=== PATIENT | male | born 1965 | race Caucasian/White ===

== ENCOUNTER → 2019-04-21 08:41 | Outpatient (BNVA) | payer SELFPAY | PROVIDERS: Family Provider Nurse Practitioner Family; PCP Nurse Practitioner Family | DX: E11.9 Type 2 diabetes mellitus without complications (principal) | CPT/HCPCS: 83036 ==

== ENCOUNTER → 2019-11-24 16:10 | Outpatient (BNVA) | payer SELFPAY | PROVIDERS: Family Provider Nurse Practitioner Family; PCP Nurse Practitioner Family; Visit Provider Nurse Practitioner Family | DX: E11.9 Type 2 diabetes mellitus without complications (principal); I10 Essential (primary) hypertension | CPT/HCPCS: 83036 ==

== ENCOUNTER → 2020-03-28 10:13 | Outpatient (BNVA) | payer SELFPAY | PROVIDERS: Family Provider Nurse Practitioner Family; PCP Nurse Practitioner Family; Visit Provider Nurse Practitioner Family | DX: E11.9 Type 2 diabetes mellitus without complications (principal); Z02.4 Encounter for examination for driving license | CPT/HCPCS: 83036 ==

== ENCOUNTER → 2020-05-11 09:14 | Outpatient (BNVA) | payer SELFPAY | PROVIDERS: Family Provider Nurse Practitioner Family; PCP Nurse Practitioner Family; Visit Provider Nurse Practitioner Family | DX: M62.838 Other muscle spasm (principal); M54.9 Dorsalgia, unspecified; S39.012A Strain of muscle, fascia and tendon of lower back, initial encounter; E11.9 Type 2 diabetes mellitus without complications; X58.XXXA Exposure to other specified factors, initial encounter | CPT/HCPCS: 81000 ==

== ENCOUNTER → 2020-11-21 09:31 | Outpatient (BNVA) | payer SELFPAY | PROVIDERS: Family Provider Nurse Practitioner Family; PCP Nurse Practitioner Family; Visit Provider Nurse Practitioner Family | DX: E78.5 Hyperlipidemia, unspecified (principal); I10 Essential (primary) hypertension; E11.9 Type 2 diabetes mellitus without complications | CPT/HCPCS: 80053; 80061; 82043; 83036 ==

== ENCOUNTER 2021-04-23 12:55 | Emergency (ER) | payer SELFPAY ==
[2021-04-23 13:25] VITALS: BP 130/86; PULSE 96; RESP 24; TEMP 36.8; O2SAT 97; BMI 34.0
--- NOTE | 2021-04-23 13:32 | XRR_ITS ---
PROCEDURE INFORMATION: Exam: XR Chest Exam date and time: 04/23/2021 1:32 PM Age: 55 years old Clinical indication: Shortness of breath; Additional info: SOB TECHNIQUE: Imaging protocol: XR of the chest. Views: 1 view. COMPARISON: No relevant prior studies available. FINDINGS: Limitations: The study is made with less than full inspiration. Lungs: No focal consolidation is identified. Pleural spaces: There are small bilateral pleural effusions. Heart/Mediastinum: Heart is within normal limits of size. Bones/joints: Unremarkable. XR/XR chest 1V portable [id number] IMPRESSION: Small bilateral pleural effusions.
[2021-04-23 15:04] LABS: Basophils # 0.1 10^3/uL (0.0-0.1); Basophils % 0.6 %; Eosinophils # 0.1 10^3/uL (0.0-0.8); Eosinophils % 0.9 %; Hematocrit 42.5 % (42.0-52.0); Hemoglobin 14.5 g/dL (11.7-16.6); Lymphocytes % 26.6 %; Mean Corpuscular HGB Conc 34.1 g/dL (30.0-36.0); Mean Corpuscular Hemoglobin 32.5 pg (28.0-34.0); Mean Corpuscular Volume 95.3 fl (80-94); Mean Platelet Volume 10.9 fL (7.4-10.4); Monocytes # 0.7 10^3/uL (0.2-0.9); Monocytes % 6.2 %; Neutrophils # 7.34 10^3/uL (1.8-7.7); Neutrophils % 65.4 %; Nucleated Red Blood Cells % 0 %; Platelet Count 227 10^3/cmm (130-400); Red Blood Count 4.46 10^6/uL (4.1-5.3); Red Cell Distribution Width 13.2 % (12.1-15.1); White Blood Count 11.2 10^3/uL (4.0-10.0)
[2021-04-23 15:40] LABS: Alanine Aminotransferase 70 U/L (0-41); Albumin Level 4.2 g/dL (3.5-5.2); Alkaline Phosphatase 85 IU/L (40-130); Anion Gap 16.6 (5-19); Aspartate Amino Transferase 34 U/L (0-40); Blood Urea Nitrogen 15 mg/dL (6-20); Calcium 8.8 mg/dL (8.5-10.5); Carbon Dioxide 24 mmol/L (22-29); Chloride 102 mmol/L (98-107); Globulin 2.4 g/dL (1.3-4.6); Glomerular Filtration Rate 88.3 mL/min (90-130); Glucose 176 mg/dL (65-115); NT Pro B Type Natriuretic Pept 3152 pg/mL (0-125); Osmolality Calculated 291 mOsm/kg (285-295); Potassium 4.6 mmol/L (3.5-5.1); Sodium 138 mmol/L (136-145); Total Bilirubin 0.9 mg/dL (0.15-1.2); Total Protein 6.6 g/dL (6.6-8.7)
--- NOTE | 2021-04-23 17:11 | ED_ITS ---
HPI - SOB/Dyspnea General: Chief Complaint: Shortness of Breath/Dyspnea Stated Complaint: SOB Time Seen by Provider: 04/23/21 17:10 History of Present Illness: HPI Narrative: Mr Dupree is a 55-year-old gentleman with history of hypertension, diabetes, history of tobaccoism though trying to quit who presents to the emergency department due to shortness of breath. He reports longstanding history of being well compensated and being out of work his normal job. Approximately 3 weeks ago he had a few day history of increasing shortness of breath. He presented to outside hospital and at that time was found to have pulmonary edema. He was reported started on Lasix and had been doing well again for 3 weeks however last night noticed more shortness of breath. Symptoms are mild in intensity however become moderate with exertion and severe with laying down. He does have mild cough however this is not productive. Denies other infectious symptoms. No chest pain. He has been compliant with his medication regimen. Overall the course of symptoms has persisted. No other known specific changes to health, exacerbating, relieving factors. Patient denies history of known heart failure. Pertinent past history: other Onset (ago): week(s) Context: other Severity: moderate Exacerbating factors: lying flat and movement Associated symptoms: Reports cough Review of Systems General: Reports: 10 or more systems reviewed and unremarkable except in HPI and below PFSH ED PFSH: Medical History Type 2 diabetes mellitus without complication Surgical History No significant past surgical history Social History Smoking and tobacco status: current some day smoker Physical Exam Const: COMMON NORMALS: alert GENERAL APPEARANCE: cooperative and well developed HENMT: COMMON NORMALS: normocephalic and atraumatic HEAD & SCALP: n ormocephalic and atraumatic Eye: COMMON NORMALS: conjunctivae normal CONJUNCTIVA: Yes conjunctivae normal SCLERA: sclerae normal Neck/C-Spine: COMMON NORMALS: supple GENERAL: Yes trachea midline Resp: COMMON NORMALS: normal respiratory effort EFFORT & INSPECTION: Yes able to speak in complete sentences and Yes tachypneic AUSCULTATION: crackles Laterality: bilateral (trace, bases) Cardio: COMMON NORMALS: regular rate and regular rhythm RATE: regular rate RHYTHM: regular rhythm OTHER: Bilateral 1+ edema to mid calfs GI: COMMON NORMALS: Soft to palpation PALPATION: Yes Soft to palpation and No Tenderness to palpation present (GI) PERCUSSION: normal to percussion Extremity: GENERAL: Yes normal exam except as noted and No edema Neuro: COMMON NORMALS: moves all extremities SENSORIUM/ORIENTATION: Yes alert and No Orientation impaired Psych: COMMON NORMALS: mental status grossly normal and Normal thought process present THOUGHT PROCESS: Normal thought process present Course ED course: - Patient was seen and evaluated by me at bedside - Patient placed on cardiac monitors, IV access obtained - Initial evaluation notable for exam as above - Labs notable for minimal leukocytosis. Preserved renal function on metabolic panel. Delta troponin is negative. - Imaging notable for small bilateral pleural effusion - Upon serial reexamination after treatment the patient was improved - Based on patient history, evaluation, labs, and imaging as interpreted the most likely cause of the patient's condition is heart failure exacerbation which is mild. Patient is not requiring supplemental oxygen. - The results of ED evaluation were discussed with the patient including prescriptions and/or symptomatic cares (if applicable) including appropriate and responsible use, followup plan, and return precautions. The patient verbalized understanding and felt safe for discharge. - Patient discharged in satisfactory condition. Note: Click bubbles or prepopulated parrish in note writing are used for assistance with data collection and billing and are inherently more limited than narrative and other text portions of this note. Please use narrative for additional clinical history and defer to narrative/free test for any case of contradictory information. If information appears in only free text or click bubble it should be considered present or absent as reported. Please contact note administrative underwriter for clarifications of clinical information or contradictory information. MDM is a brief summary, contradictory or erroneous seeming information should be clarified and full note should be reviewed. Vital Signs: Vital signs: Vital Signs Temperature 98.3 F 04/23/21 13:25 Pulse Rate 80 04/23/21 19:09 Respiratory Rate 20 H 04/23/21 19:09 Blood Pressure 119/95 04/23/21 19:09 Pulse Oximetry 96 04/23/21 19:09 MDM - SOB/Dyspnea MDM Narrative Medical decision making narrative: 55-year-old gentleman without significant past medical history presenting due to increased shortness of breath and orthopnea. Seen at outside hospital 3 weeks ago for similar and started on Lasix for pulmonary edema. Has been compliant with medications however he did not receive phone call for follow-up. Patient is not requiring oxygen only has mild peripheral edema. Plan to increase his Lasix and have further outpatient testing as well as cardiology follow-up. Satisfactory for discharge. Medical Records Attestation: I reviewed the patient's medical records. Lab Data Attestation: I reviewed the patient's lab results. Result diagrams: 04/23/21 15:00 04/23/21 15:00 Labs: Lab Results 04/23/21 04/23/21 04/23/21 15:00 15:00 15:00 WBC 11.2 10^3/uL H 10^3/uL (4.0-10.0) RBC 4.46 10^6/uL 10^6/uL (4.1-5.3) Hgb 14.5 g/dL g/dL (11.7-16.6) Hct 42.5 % % (42.0-52.0) MCV 95.3 fl H fl (80-94) MCH 32.5 pg pg (28.0-34.0) MCHC 34.1 g/dL g/dL (30.0-36.0) RDW 13.2 % % (12.1-15.1) Plt Count 227 10^3/cmm 10^3/cmm (130-400) MPV 10.9 fL H fL (7.4-10.4) Neut % (Auto) 65.4 % % Lymph % (Auto) 26.6 % % [place] % (Auto) 6.2 % % Eos % (Auto) 0.9 % % Baso % (Auto) 0.6 % % Neut # (Auto) 7.34 10^3/uL 10^3/uL (1.8-7.7) Lymph # (Auto) 3.0 10^3/uL 10^3/uL (0.8-4.8) [place] # (Auto) 0.7 10^3/uL 10^3/uL (0.2-0.9) Eos # (Auto) 0.1 10^3/uL 10^3/uL (0.0-0.8) Baso # (Auto) 0.1 10^3/uL 10^3/uL (0.0-0.1) Nucleated RBC % (auto) 0 % % Nucleated RBCs # 0.0 /100WBC /100WBC Sodium 138 mmol/L mmol/L (136-145) Potassium 4.6 mmol/L mmol/L (3.5-5.1) Chloride 102 mmol/L mmol/L (98-107) Carbon Dioxide 24 mmol/L mmol/L (22-29) Anion Gap 16.6 (5-19) BUN 15 mg/dL mg/dL (6-20) Creatinine 0.9 mg/dL mg/dL (0.7-1.2) GFR Calculation 88.3 mL/min L mL/min (90-130) Glucose 176 mg/dL H mg/dL (65-115) Calculated Osmolality 291 mOsm/kg mOsm/kg (285-295) Calcium 8.8 mg/dL mg/dL (8.5-10.5) Total Bilirubin 0.9 mg/dL mg/dL (0.15-1.2) AST 34 U/L U/L (0-40) ALT 70 U/L H U/L (0-41) Alkaline Phosphatase 85 IU/L IU/L (40-130) Troponin T Baseline Troponin T 120 Minute Delta Troponin T NT-Pro-B Natriuret Pep 3152 pg/mL H pg/mL (0-125) Total Protein 6.6 g/dL g/dL (6.6-8.7) Albumin 4.2 g/dL g/dL (3.5-5.2) Globulin 2.4 g/dL g/dL (1.3-4.6) Procalcitonin 0.04 ng/mL ng/mL (0-0.5) 04/23/21 04/23/21 15:00 17:55 WBC RBC Hgb Hct MCV MCH MCHC RDW Plt Count MPV Neut % (Auto) Lymph % (Auto) [place] % (Auto) Eos % (Auto) Baso % (Auto) Neut # (Auto) Lymph # (Auto) [place] # (Auto) Eos # (Auto) Baso # (Auto) Nucleated RBC % (auto) Nucleated RBCs # Sodium Potassium Chloride Carbon Dioxide Anion Gap BUN Creatinine GFR Calculation Glucose Calculated Osmolality Calcium Total Bilirubin AST ALT Alkaline Phosphatase Troponin T Baseline 26 ng/L H ng/L (0-15) Troponin T 120 Minute 25.79 ng/L H ng/L (0-15) Delta Troponin T -0.21 ABS# L ABS# (0-10) NT-Pro-B Natriuret Pep Total Protein Albumin Globulin Procalcitonin EKG Data^ EKG 1: Interpretation: Twelve-lead EKG shows a regular rhythm at a rate of 95. SD interval 144, QRS duration 169, QTc 474. Left axis deviation. Interpretation: Sinus rhythm. Left bundle branch block. Discharge Plan Discharge Patient Disposition: Home Clinical Impression: Shortness of breath, Pleural effusion, Peripheral edema Condition: Stable Prescriptions: New Lasix 20 mg tablet 40 mg PO DAILY Qty: 60 0RF No Action glipizide 5 mg tablet 5 mg PO BID Qty: 180 1RF Rx Instructions: pLEASE FILL ON 340b (DME) Blood Glucose Test Strip See Rx Instructions .Route Qty: 50 2RF Rx Instructions: As directed (DME) lancets Misc See Rx Instructions .Route Qty: 100 1RF Rx Instructions: As directed (DME) blood-glucose meter [Blood Glucose Monitoring] Kit See Rx Instructions .ROUTE .MEDSUPPLY Qty: 1 0RF Rx Instructions: As directed losartan 100 mg tablet See Rx Instructions .ROUTE .COMPLEX Qty: 90 0RF Dose Instruction: TAKE 1 TABLET BY MOUTH EVERY DAY Rx Instructions: TAKE 1 TABLET BY MOUTH EVERY DAY metformin 500 mg tablet See Rx Instructions .ROUTE .COMPLEX Qty: 90 0RF Dose Instruction: TAKE 1 TABLET BY MOUTH DAILY Rx Instructions: TAKE 1 TABLET BY MOUTH DAILY metformin 1,000 mg tablet See Rx Instructions .ROUTE .COMPLEX Qty: 180 0RF Dose Instruction: TAKE 1 TABLET BY MOUTH TWICE DAILY Rx Instructions: TAKE 1 TABLET BY MOUTH TWICE DAILY Discharge Orders: Discharge ED (Routine); Ordered 04/23/21 Ordered By: Manoj Francois Referrals: Leti Duong FNP [Primary Care Provider] - Discharge Diet: Usual diet Discharge Activity: Resume usual activity Patient Instructions: Furosemide (By mouth), Congestive Heart Failure, Pleural Effusion Activity Restrictions/Additional Instructions: Thank you for visiting the emergency department. You were seen and evaluated for shortness of breath. You are found to have recurrence of pleural effusions which likely explain your symptoms. These are typically caused by decreased function of your heart. I recommend increasing your Lasix back to 40 mg daily, assess how this works over the next 3 days and increase to 40 mg twice daily if you are still having severe symptoms. Please follow-up with your primary care provider within 1 week for repeat labs. I will message our welfare case worker for assistance in scheduling a outpatient echo cardiogram and stress test. Return to the emergency department for worsening symptoms, chest pain, failure to improve, or anything else that you are concerned about and feel needs emergency department evaluation. Coding Level of Care Code ED Curing Pickling Packer for Tara Villarreal
[2021-04-23 18:01] LABS: Procalcitonin 0.04 ng/mL (0-0.5)
[2021-04-23 18:09] LABS: Troponin(5th) Baseline 26 ng/L (0-15)
[2021-04-23] MEDS: FUROsemide 10 mg/mL SDV 4mL 40 MG IVP (18:12)
[2021-04-23 18:21] LABS: Troponin 5 2HR 25.79 ng/L (0-15); Troponin 5 2HR Delta -0.21 ABS# (0-10)
[2021-04-23 19:09] VITALS: BP 119/95; PULSE 80; RESP 20; O2SAT 96
--- NOTE | 2021-04-25 15:09 | DCPLANNER ---
assistant manager had message to schedule an outpatient stress test and echo cardiogram for patient. assistant manager faxed signed order to centralized scheduling, who will call patient with appointment information.
== END 2021-04-23 19:10 | disposition home or self-care (01) ==
PROVIDERS: Nurse Practitioner Family; Emergency Provider Emergency Medicine; PCP Nurse Practitioner Family
DX: R06.02 Shortness of breath (principal); J90 Pleural effusion, not elsewhere classified; R60.9 Edema, unspecified; E11.9 Type 2 diabetes mellitus without complications; F17.210 Nicotine dependence, cigarettes, uncomplicated; Z79.84 Long term (current) use of oral hypoglycemic drugs
CPT/HCPCS: 71045; 80053; 83880; 84145; 84484; 85025; 96374; 99284; J1940

== ENCOUNTER → 2021-04-27 10:34 | Outpatient (BNVA) | payer SELFPAY | PROVIDERS: PCP Nurse Practitioner Family; Visit Provider Nurse Practitioner Family | DX: R60.9 Edema, unspecified (principal) | CPT/HCPCS: 80053 ==

== ENCOUNTER 2021-05-08 21:19 | Emergency (ER) | payer SELFPAY ==
--- NOTE | 2021-05-08 21:24 | XRR_ITS ---
PROCEDURE INFORMATION: Exam: XR Chest Exam date and time: 05/08/2021 9:24 PM Age: 55 years old Clinical indication: Dyspnea; Additional info: SOB TECHNIQUE: Imaging protocol: XR of the chest. Views: 1 view. COMPARISON: CR (CHEST, ) 04/23/2021 4:43 PM FINDINGS: Lungs: No consolidation. Pleural spaces: No pleural effusion. No pneumothorax. Heart/Mediastinum: No cardiomegaly. Bones/joints: Unremarkable. XR/XR chest 1V portable [id number] IMPRESSION: 1. No acute abnormality demonstrated. 2. There is no interval change from the prior examination.
--- NOTE | 2021-05-08 21:24 | ECG_ITS ---
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 Measurements Intervals [place] Rate: 98 P: 77 OK: 160 QRS: -63 QRSD: 180 T: 97 QT: 440 QTc: 562 Interpretive Statements SINUS RHYTHM LEFT AXIS DEVIATION [QRS AXIS < -30] LEFT BUNDLE BRANCH BLOCK [120+ ms QRS DURATION, 80+ ms Q/S IN V1/V2, 85+ ms R IN I/aVL/V5/V6] No previous ECG available for comparison Electronically Signed On 05-09-2021 17:12:51 COVER CUTTER MACHINE by Geovany Booker M.D. [email or web address] [email or web address] system [id number]
[2021-05-08 21:40] VITALS: BP 124/91; PULSE 100; RESP 26; TEMP 36.7; O2SAT 97; BMI 34.0
[2021-05-08 23:44] LABS: Basophils % 0.3 %; Eosinophils % 0.1 %; Hematocrit 45.3 % (42.0-52.0); Lymphocytes # 2.1 10^3/uL (0.8-4.8); Lymphocytes % 18.4 %; Mean Corpuscular HGB Conc 33.1 g/dL (30.0-36.0); Mean Corpuscular Hemoglobin 32.5 pg (28.0-34.0); Mean Corpuscular Volume 98.1 fl (80-94); Mean Platelet Volume 11.2 fL (7.4-10.4); Monocytes # 0.8 10^3/uL (0.2-0.9); Monocytes % 6.7 %; Neutrophils # 8.44 10^3/uL (1.8-7.7); Neutrophils % 74.1 %; Nucleated Red Blood Cells % 0 %; Platelet Count 217 10^3/cmm (130-400); Red Blood Count 4.62 10^6/uL (4.1-5.3); Red Cell Distribution Width 13.7 % (12.1-15.1); White Blood Count 11.4 10^3/uL (4.0-10.0)
[2021-05-09 00:09] LABS: Alanine Aminotransferase 61 U/L (0-41); Albumin Level 4.7 g/dL (3.5-5.2); Alkaline Phosphatase 88 IU/L (40-130); Anion Gap 18.3 (5-19); Aspartate Amino Transferase 39 U/L (0-40); Blood Urea Nitrogen 19 mg/dL (6-20); Calcium 9.3 mg/dL (8.5-10.5); Carbon Dioxide 28 mmol/L (22-29); Chloride 96 mmol/L (98-107); Globulin 2.1 g/dL (1.3-4.6); Glomerular Filtration Rate 78.2 mL/min (90-130); Glucose 232 mg/dL (65-115); Osmolality Calculated 296 mOsm/kg (285-295); Potassium 4.3 mmol/L (3.5-5.1); Sodium 138 mmol/L (136-145); Total Bilirubin 1.6 mg/dL (0.15-1.2); Total Protein 6.8 g/dL (6.6-8.7)
--- NOTE | 2021-05-09 01:00 | ED_ITS ---
HPI - Chest Pain General: Chief Complaint: Chest Pain Stated Complaint: SOB Fluid on Lungs Time Seen by Provider: 05/08/21 23:19 Source: patient Mode of arrival: ambulatory Limitations: no limitations History of Present Illness: 55-year-old male has a history congestive heart failure states he has been having shortness of breath for the last 4 to 6 weeks has been seen here couple times for this. He was seen here last week as well. States he is improved last time after he had his increasing Lasix was states he had increasing chest pain and shortness of breath of last 3 days again. He states that is much worse with laying flat or exertion he feels okay when he is resting. Patient is in no distress here he is got oxygen saturation of 98% on room air. Denies any vomiting or diarrhea. Associated symptoms: Reports dyspnea; Deny abdominal pain, fever(s), nausea or vomiting Review of Systems Const: Denies: fever(s), chills, body aches or change in appetite Eyes: Denies: blurry vision or eye discomfort ENMT: Denies: throat pain or dental pain Card: Reports: chest pain Resp: Reports: dyspnea GI: Denies: abdominal pain, nausea, vomiting or diarrhea : Denies: dysuria Musc: Denies: neck pain or back pain Skin/Breast: Denies: rash Neuro: Denies: headache(s) Psych: Denies: depression Campos/Lymph: Denies: easy bruising All/Imm: Denies: urticaria PFSH ED PFSH: Medical History Type 2 diabetes mellitus without complication Surgical History No significant past surgical history Social History Smoking and tobacco status: current some day smoker Physical Exam Const: COMMON NORMALS: no acute distress, patient oriented x3 and healthy appearing HENMT: COMMON NORMALS: normocephalic and atraumatic HEAD & SCALP: normocephalic and atraumatic Eye: COMMON NORMALS: Equal, round and reactive pupils present and EOMs intact bilaterally PUPIL: Yes Equal, round and reactive pupils present Neck/C-Spine: COMMON NORMALS: full ROM and supple Chest: COMMONS NORMALS: normal inspection of the chest and normal palpation of entire chest wall Resp: COMMON NORMALS: normal respiratory effort, No retractions, No use of accessory muscles and clear to auscultation bilaterally AUSCULTATION: clear to auscultation bilaterally Cardio: COMMON NORMALS: regular rate, regular rhythm and No murmurs present (Cardio) RATE: regular rate RHYTHM: regular rhythm GI: COMMON NORMALS: Normal to inspection, nondistended, normoactive bowel sounds present, Soft to palpation, non-tender and no masses PALPATION: Yes Soft to palpation Extremity: COMMON NORMALS: full ROM NARRATIVE EXTREMITY EXAM: 1+ le edema Neuro: COMMON NORMALS: patient oriented x3, moves all extremities and no focal motor deficits Psych: COMMON NORMALS: mental status grossly normal, Normal thought process present and cooperative THOUGHT PROCESS: Normal thought process present Skin: COMMON NORMALS: no rashes or lesions noted and no wounds GENERAL SKIN EXAM: no rashes or lesions noted Course Vital Signs: Vital signs: Vital Signs Temperature 98.1 F 05/08/21 21:40 Pulse Rate 100 05/08/21 21:40 Respiratory Rate 26 H 05/08/21 21:40 Blood Pressure 124/91 05/08/21 21:40 Pulse Oximetry 97 05/08/21 21:40 MDM - Chest Pain Medical Decision Making Patient presents with congestive heart failure he does improved here after Lasix feels much improved as well. We will increase his Lasix dose at home as well and get him a follow-up with cardiology he is to return if worsening he understands and agrees to plan. Lab Data : 05/08/21 23:40 05/08/21 23:40 Radiology Impressions Chest X-Ray 05/08/21 21:24 IMPRESSION: 1. No acute abnormality demonstrated. 2. There is no interval change from the prior examination. Chest CTA 05/09/21 01:28 IMPRESSION: 1. No pulmonary embolus. 2. Cardiomegaly, bilateral pleural effusions, extensive body wall edema and increased interstitial markings in the lower lungs suggesting congestive failure. 3. Emphysema. Mediastinal adenopathy. Other findings detailed above. Laboratory Results WBC 11.4 10^3/uL (4.0-10.0) H 05/08/21 23:40 RBC 4.62 10^6/uL (4.1-5.3) 05/08/21 23:40 Hgb 15.0 g/dL (11.7-16.6) 05/08/21 23:40 Hct 45.3 % (42.0-52.0) 05/08/21 23:40 MCV 98.1 fl (80-94) H 05/08/21 23:40 MCH 32.5 pg (28.0-34.0) 05/08/21 23:40 MCHC 33.1 g/dL (30.0-36.0) 05/08/21 23:40 RDW 13.7 % (12.1-15.1) 05/08/21 23:40 Plt Count 217 10^3/cmm (130-400) 05/08/21 23:40 MPV 11.2 fL (7.4-10.4) H 05/08/21 23:40 Neut % (Auto) 74.1 % 05/08/21 23:40 Lymph % (Auto) 18.4 % 05/08/21 23:40 [place] % (Auto) 6.7 % 05/08/21 23:40 Eos % (Auto) 0.1 % 05/08/21 23:40 Baso % (Auto) 0.3 % 05/08/21 23:40 Neut # (Auto) 8.44 10^3/uL (1.8-7.7) H 05/08/21 23:40 Lymph # (Auto) 2.1 10^3/uL (0.8-4.8) 05/08/21 23:40 [place] # (Auto) 0.8 10^3/uL (0.2-0.9) 05/08/21 23:40 Eos # (Auto) 0.0 10^3/uL (0.0-0.8) 05/08/21 23:40 Baso # (Auto) 0.0 10^3/uL (0.0-0.1) 05/08/21 23:40 Nucleated RBC % (auto) 0 % 05/08/21 23:40 Nucleated RBCs # 0.0 /100WBC 05/08/21 23:40 D-Dimer 1.38 ug/mIFEU (0-0.59) H 05/09/21 01:06 Sodium 138 mmol/L (136-145) 05/08/21 23:40 Potassium 4.3 mmol/L (3.5-5.1) 05/08/21 23:40 Chloride 96 mmol/L (98-107) L 05/08/21 23:40 Carbon Dioxide 28 mmol/L (22-29) 05/08/21 23:40 Anion Gap 18.3 (5-19) 05/08/21 23:40 BUN 19 mg/dL (6-20) 05/08/21 23:40 Creatinine 1.0 mg/dL (0.7-1.2) 05/08/21 23:40 GFR Calculation 78.2 mL/min (90-130) L 05/08/21 23:40 Glucose 232 mg/dL (65-115) H 05/08/21 23:40 Calculated Osmolality 296 mOsm/kg (285-295) H 05/08/21 23:40 Calcium 9.3 mg/dL (8.5-10.5) 05/08/21 23:40 Total Bilirubin 1.6 mg/dL (0.15-1.2) H 05/08/21 23:40 AST 39 U/L (0-40) 05/08/21 23:40 ALT 61 U/L (0-41) H 05/08/21 23:40 Alkaline Phosphatase 88 IU/L (40-130) 05/08/21 23:40 Troponin T Baseline 19 ng/L (0-15) H 05/08/21 23:40 Troponin T 120 Minute 18.08 ng/L (0-15) H 05/09/21 01:49 Delta Troponin T -0.92 ABS# (0-10) L 05/09/21 01:49 NT-Pro-B Natriuret Pep 5499 pg/mL (0-125) H 05/08/21 23:40 Total Protein 6.8 g/dL (6.6-8.7) 05/08/21 23:40 Albumin 4.7 g/dL (3.5-5.2) 05/08/21 23:40 Globulin 2.1 g/dL (1.3-4.6) 05/08/21 23:40 Imaging Data CXR: Radiologist's impression: IMPRESSION: 1. No acute abnormality demonstrated. 2. There is no interval change from the prior examination. CT Chest: Radiologist's impression: CT/CT angio chest PE protcl [id number] IMPRESSION: 1. No pulmonary embolus. 2. Cardiomegaly, bilateral pleural effusions, extensive body wall edema and increased interstitial markings in the lower lungs suggesting congestive failure. 3. Emphysema. Mediastinal adenopathy. Other findings detailed above. EKG Data EKG 1: I personally reviewed and interpreted this EKG as follows: EKG interpretation date: 05/08/21 EKG interpretation time: 21:47 Interpretation: nsr hr [address] elevation lbbb left axis deviation qrs 180 qtc 495 EKG 2: I personally reviewed and interpreted this EKG as follows: EKG interpretation date: 05/09/21 EKG interpretation time: 02:40 Interpretation: nsr hr 96 no stemi lbbb left axis devation qrs 187 qtc 503 no change from previous Discharge Plan Discharge Patient Disposition: Home Clinical Impression: CHF exacerbation Condition: Stable Prescriptions: New Lasix 80 mg tablet 80 mg PO BID Qty: 60 0RF No Action glipizide 5 mg tablet 5 mg PO BID Qty: 180 1RF Rx Instructions: pLEASE FILL ON 340b (DME) Blood Glucose Test Strip See Rx Instructions .Route Qty: 50 2RF Rx Instructions: As directed (DME) lancets Misc See Rx Instructions .Route Qty: 100 1RF Rx Instructions: As directed (DME) blood-glucose meter [Blood Glucose Monitoring] Kit See Rx Instructions .ROUTE .MEDSUPPLY Qty: 1 0RF Rx Instructions: As directed losartan 100 mg tablet See Rx Instructions .ROUTE .COMPLEX Qty: 90 0RF Dose Instruction: TAKE 1 TABLET BY MOUTH EVERY DAY Rx Instructions: TAKE 1 TABLET BY MOUTH EVERY DAY metformin 500 mg tablet See Rx Instructions .ROUTE .COMPLEX Qty: 90 0RF Dose Instruction: TAKE 1 TABLET BY MOUTH DAILY Rx Instructions: TAKE 1 TABLET BY MOUTH DAILY metformin 1,000 mg tablet See Rx Instructions .ROUTE .COMPLEX Qty: 180 0RF Dose Instruction: TAKE 1 TABLET BY MOUTH TWICE DAILY Rx Instructions: TAKE 1 TABLET BY MOUTH TWICE DAILY Lasix 20 mg tablet 40 mg PO DAILY Qty: 60 0RF Discharge Orders: Discharge ED (Routine); Ordered 05/09/21 Ordered By: Willy Salinas Referrals: Leti Duong FNP [Primary Care Provider] - Geovany Booker M.D [Physician] - 1-3 days Discharge Diet: Advance as tolerated Discharge Activity: Resume usual activity Patient Instructions: Heart Failure (ED) Coding Level of Care Code ED Staff Air Tactical Officer for Tara Fwd Exam Comprehensive
[2021-05-09 01:27] LABS: D Dimer 1.38 ug/mIFEU (0-0.59)
[2021-05-09 01:28] LABS: Troponin(5th) Baseline 19 ng/L (0-15)
--- NOTE | 2021-05-09 01:28 | CTR_ITS ---
PROCEDURE INFORMATION: Exam: CTA Chest With Contrast Exam date and time: 05/09/2021 1:28 AM Age: 55 years old Clinical indication: Abnormal findings; Abnormal diagnostic tests; Elevated d-dimer; Dyspnea; Additional info: SOB TECHNIQUE: Imaging protocol: Computed tomographic angiography of the chest with contrast. 3D rendering (Not supervised by radiologist): MIP and/or 3D reconstructed images were created by the technologist. Radiation optimization: All CT scans at this facility use at least one of these dose optimization techniques: automated exposure control; mA and/or kV adjustment per patient size (includes targeted exams where dose is matched to clinical indication); or iterative reconstruction. Contrast material: OMNI 350; Contrast volume: 95 ml; Contrast route: INTRAVENOUS (IV); COMPARISON: CR (CHEST, ) 05/08/2021 10:09 PM RADIATION DOSE METRICS: Total DLP (mGy-cm): 678.72 FINDINGS: Pulmonary arteries: No pulmonary embolus. Aorta: Atherosclerosis. No aortic aneurysm. No significant aortic enhancement. Lungs: Multiple paraseptal and some centrilobular blebs in the upper lungs. Slight atelectasis in the lung bases. No consolidation. Increased interstitial markings in the lower lungs most apparent on the coronal reformations. Very small calcified granuloma in the lateral left upper lobe. Pleural spaces: [id number] right and mild left pleural effusions. No pneumothorax. Heart: Cardiomegaly. Left coronary artery calcifications. Minimal pericardial effusion. Lymph nodes: Enlargement or prominence of multiple mediastinal nodes. No apparent hilar adenopathy. Kidneys and ureters: Bilateral perirenal stranding. No hydronephrosis in the visualized kidneys. Bones/joints: Old compression fractures. Degeneration of several discs. Subchondral defects in the right humeral head. Soft tissues: Extensive body wall edema. Bilateral gynecomastia not excluded. CT/CT angio chest PE protcl [id number] IMPRESSION: 1. No pulmonary embolus. 2. Cardiomegaly, bilateral pleural effusions, extensive body wall edema and increased interstitial markings in the lower lungs suggesting congestive failure. 3. Emphysema. Mediastinal adenopathy. Other findings detailed above.
[2021-05-09 01:37] LABS: NT Pro B Type Natriuretic Pept 5499 pg/mL (0-125)
[2021-05-09] MEDS: FUROsemide 10 mg/mL SDV 10mL 60 MG IVP (02:00)
[2021-05-09] MEDS: iohexol 350 mg/mL 100 mL Btl IV (02:09)
--- NOTE | 2021-05-09 02:56 | ECG_ITS ---
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 Measurements Intervals [place] Rate: 96 P: 79 DE: 170 QRS: -70 QRSD: 187 T: 101 QT: 450 QTc: 570 Interpretive Statements SINUS RHYTHM POSSIBLE LEFT ATRIAL ENLARGEMENT [-0.1mV P-WAVE IN V1/V2] LEFT AXIS DEVIATION [QRS AXIS < -30] LEFT BUNDLE BRANCH BLOCK [120+ ms QRS DURATION, 80+ ms Q/S IN V1/V2, 85+ ms R IN I/aVL/V5/V6] Compared to ECG 05/08/2021 21:47:00 No significant changes Electronically Signed On 05-09-2021 5:17:46 CAREER REPRESENTATIVE by Sraai Nazario M.D. [id number]
[2021-05-09 02:59] LABS: Troponin 5 2HR 18.08 ng/L (0-15)
[2021-05-09 03:02] LABS: Troponin 5 2HR Delta -0.92 ABS# (0-10)
--- NOTE | 2021-05-09 12:37 | DCPLANNER ---
Addendum entered by Lanny Moran 05/22/21 15:48: Patient had a follow up appointment scheduled for 05.18.[address] Dawson at [facility] - patient did attend appointment. Original Note: medicine and health service manager had message to schedule a follow up appointment for patient with [facility]. medicine and health service manager called [facility], spoke with Karissa, gave clinic patients information. A follow up appointment was scheduled for May at 12:[address] Dawson. medicine and health service manager called and spoke with patients , gave her the appointment information.
== END 2021-05-09 03:37 | disposition home or self-care (01) ==
PROVIDERS: Emergency Provider Emergency Medicine; PCP Nurse Practitioner Family
DX: I50.9 Heart failure, unspecified (principal); Z79.84 Long term (current) use of oral hypoglycemic drugs; E11.9 Type 2 diabetes mellitus without complications; F17.210 Nicotine dependence, cigarettes, uncomplicated
CPT/HCPCS: 36415; 71045; 71275; 80053; 83880; 84484; 85025; 85378; 93005; 96374; 99283; J1940; Q9967

== ENCOUNTER → 2021-05-18 13:15 | Outpatient (BNVA) | payer SELFPAY | PROVIDERS: PCP Nurse Practitioner Family; Visit Provider Internal Medicine | DX: R06.02 Shortness of breath (principal); E11.9 Type 2 diabetes mellitus without complications | CPT/HCPCS: 80048; 83880 ==

== ENCOUNTER 2021-06-05 08:56 | Outpatient (CLI) | payer SELFPAY ==
[2021-06-05 12:07] LABS: Anion Gap 19.5 (5-19); Blood Urea Nitrogen 22 mg/dL (6-20); Calcium 9.2 mg/dL (8.5-10.5); Carbon Dioxide 28 mmol/L (22-29); Chloride 98 mmol/L (98-107); Glomerular Filtration Rate 78.2 mL/min (90-130); Glucose 210 mg/dL (65-115); NT Pro B Type Natriuretic Pept 4067 pg/mL (0-125); Osmolality Calculated 302 mOsm/kg (285-295); Potassium 4.5 mmol/L (3.5-5.1); Sodium 141 mmol/L (136-145)
== END 2021-06-05 08:57 | disposition home or self-care (01) ==
PROVIDERS: PCP Nurse Practitioner Family; Visit Provider Internal Medicine
DX: I10 Essential (primary) hypertension (principal); I50.9 Heart failure, unspecified
CPT/HCPCS: 36415; 80048; 83880

== ENCOUNTER 2021-06-23 14:58 | Outpatient (CLI) | payer SELFPAY ==
[2021-06-23 15:46] LABS: Blood Urea Nitrogen 20 mg/dL (6-20); Calcium 9.8 mg/dL (8.5-10.5); Carbon Dioxide 25 mmol/L (22-29); Chloride 96 mmol/L (98-107); Glucose 247 mg/dL (65-115); NT Pro B Type Natriuretic Pept 3234 pg/mL (0-125); Osmolality Calculated 289 mOsm/kg (285-295); Sodium 134 mmol/L (136-145)
== END 2021-06-23 14:59 | disposition home or self-care (01) ==
PROVIDERS: PCP Nurse Practitioner Family; Visit Provider Internal Medicine
DX: I11.0 Hypertensive heart disease with heart failure (principal); I50.9 Heart failure, unspecified
CPT/HCPCS: 36415; 80048; 83880

== ENCOUNTER → 2021-09-11 08:55 | Outpatient (BNVA) | payer SELFPAY | PROVIDERS: PCP Nurse Practitioner Family; Visit Provider Nurse Practitioner Family | DX: E11.9 Type 2 diabetes mellitus without complications (principal); I10 Essential (primary) hypertension; E78.5 Hyperlipidemia, unspecified | CPT/HCPCS: 80053; 80061; 82043; 83036 ==

== ENCOUNTER 2022-02-05 16:45 | Emergency (ER) | payer SELFPAY ==
--- NOTE | 2022-02-05 17:21 | ECG_ITS ---
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 Measurements Intervals [place] Rate: 63 P: DE: QRS: 50 QRSD: 169 T: 0 QT: 472 QTc: 486 Interpretive Statements SINUS RHYTHM WITH possible HIGH GRADE AV BLOCK LEFT BUNDLE BRANCH BLOCK [120+ ms QRS DURATION, 80+ ms Q/S IN V1/V2, 85+ ms R IN I/aVL/V5/V6] CRITICAL TEST RESULT Compared to ECG 05/09/2021 02:40:07 Left-axis deviation no longer present Electronically Signed On 02-06-2022 20:56:54 PLATFORM BUILDER by Nathaniel Hill M.D. [id number]
--- NOTE | 2022-02-05 17:23 | XRR_ITS ---
PROCEDURE INFORMATION: Exam: XR Chest Exam date and time: 02/05/2022 6:18 PM Age: 56 years old Clinical indication: Device placement; Ett placement (vent status); Additional info: Post code TECHNIQUE: Imaging protocol: Radiologic exam of the chest. Views: 1 view. COMPARISON: CR XR chest 1V portable [id number] 05/08/2021 10:09 PM FINDINGS: Tubes, catheters and devices: Endotracheal tube terminates 1.5 cm above the samy. Lungs: Ill defined opacities noted within both lungs. Pleural spaces: No pleural effusion. No pneumothorax. Heart/Mediastinum: Mild cardiomegaly. Bones/joints: Visualized osseous structures are intact. XR/XR chest 1V portable [id number] IMPRESSION: 1. Ill defined opacities noted within both lungs. 2. Endotracheal tube terminates 1.5 cm above the samy.
[2022-02-05 17:29] LABS: Alveolar-Arterial Oxygen Gradi 71.9 mmHg (5-10); Arterial Blood Gas Hematocrit 52.3 % (42-52); Base Excess ABG -13.8 mmol/L (-2.0-2.0); Blood Gas Operator Identificat glc; Blood Gas Sample Site Brachial, left; Blood Gas Sample Type Arterial; Carboxyhemoglobin 3.1 %THgb (0.4-20.1); HCO3 ABG 17.7 mmol/L (22-26); HGB O2 Sat 89.3 % (95-100); Ionized Calcium Level - ABG 1.8 mmol/L (1.1-1.4); Methemoglobin 0.3 % (0.4-1.5); Oxygen Device AMBU; Oxygen Saturation ABG 92.4; PO2 ABG 94.4 mmHg (80.0-100.0); Potassium Level - ABG 3.3 mmol/L (3.5-5.0); Total Hemoglobin 17.1 g/dL (14-18)
[2022-02-05 17:30] LABS: ABG PCO2 63.6 mmHg (35-45); ABG PH Result 7.05 (7.35-7.45)
[2022-02-05 17:35] VITALS: BP 132/62; PULSE 54
[2022-02-05 17:38] LABS: Hemoglobin 17.2 g/dL (11.7-16.6); Red Cell Distribution Width 13.6 % (12.1-15.1)
[2022-02-05 17:39] VITALS: RESP 22
[2022-02-05 17:46] LABS: Hematocrit 54.9 % (42.0-52.0); Mean Corpuscular HGB Conc 31.3 g/dL (30.0-36.0); Mean Corpuscular Hemoglobin 33.5 pg (28.0-34.0); Mean Corpuscular Volume 106.8 fl (80-94); Mean Platelet Volume 12.1 fL (7.4-10.4); Platelet Count 129 10^3/cmm (130-400); Red Blood Count 5.14 10^6/uL (4.1-5.3); White Blood Count 9.4 10^3/uL (4.0-10.0)
[2022-02-05 17:48] LABS: Glucose Point of Care 335 mg/dL (70-110)
[2022-02-05 17:50] LABS: Troponin T (5th) Once 35 ng/L (0-15)
[2022-02-05 17:52] LABS: Alanine Aminotransferase 38 U/L (0-41); Albumin Level 3.7 g/dL (3.5-5.2); Alkaline Phosphatase 98 U/L (40-130); Aspartate Amino Transferase 38 U/L (0-40); Blood Urea Nitrogen 24 mg/dL (6-20); Calcium 9.2 mg/dL (8.5-10.5); Carbon Dioxide 19 mmol/L (22-29); Chloride 97 mmol/L (98-107); Glomerular Filtration Rate 52.8 mL/min (90-130); Glucose 331 mg/dL (65-115); Osmolality Calculated 299 mOsm/kg (285-295); Sodium 136 mmol/L (136-145); Total Bilirubin 0.9 mg/dL (0.15-1.2); Total Protein 6.7 g/dL (6.6-8.7)
--- NOTE | 2022-02-05 17:57 | PC.NURSE ---
Latrice Recinos RN, gave: Wallet, boots, socks, jeans, underwear, and $12 to the patient's son.
[2022-02-05 18:01] LABS: Lactic Sepsis W/Reflex 10.7 mmol/L (0.5-2.2)
[2022-02-05 18:02] VITALS: BP 0/0; PULSE 0; RESP 0; O2SAT 0
[2022-02-05 18:08] LABS: PT 50/50 Mix 12.9 Seconds (12.0-15.1); Partial Thromboplastin Time 33.3 Seconds (23.9-36.7); Prothrombin Time (Patient) 15.8 Seconds (12-15.1)
--- NOTE | 2022-02-05 18:13 | PC.NURSE ---
PT ARRIVED IN CARDIAC ARREST WITH CPR IN PROGRESS. EMS HAD INITIATED ACLS PROTOCOL IN FIELD. PT INTUBATED BY EMS.
[2022-02-05 18:18] LABS: Slide Review Slide Review Perform
[2022-02-05 18:21] LABS: Absolute Eosinophils 0.4 10^3/cmm (0.0-0.7); Absolute Segmented Neutrophil 3.9 10/cmm (1.6-7.1); Band Neutrophils Absolute 0.4 10^3/cmm (0.0-1.2); Eosinophils 5 %; Lymphocytes 46 %; Monocytes Absolute 0.1 10^3/cmm (0.1-0.6); Segmented Neutrophils 41 %; Total Cells Counted 100 (0-100)
[2022-02-05 18:22] LABS: Absolute Neutrophil 4.2 10^3/cmm (1.4-6.5); Giant Platelets Trace; Lymphocytes Absolute 4.3 10^3/cmm (1.2-3.4); Platelet Estimate Normal (Normal)
[2022-02-05 18:24] LABS: Creatine Phosphokinase 123 U/L (39-308)
--- NOTE | 2022-02-05 18:39 | PC.NURSE ---
Pt was brought in by EMS in cardiac arrest, CPR was in progress. We slid pt onto our bed and hooked him up to our zoll, pt was in V fib, Dr. Rose was at bedside, he was giving orders, i was pushing the meds as the charge nurse was keeping track of times and telling us when to do pulse checks and give meds per Doctors orders. Several times the pt got a pulse back and then went back into V fib. Dr. Rose remained at bedside giving orders. CPR was continous and switched between staff. ROSC was gained
--- NOTE | 2022-02-05 18:46 | PC.NURSE ---
Family was at bedside and decided to extubate pt, RT removed the tube and pt was declared at [address] Rose
--- NOTE | 2022-02-05 18:50 | PC.NURSE ---
family remained in room with pt when i left shift at 1900
--- NOTE | 2022-02-05 18:58 | PC.NURSE ---
see scan sheet for meds and times
[2022-02-05 19:20] LABS: Reflex Lactate Order REFLEX LACTIC ORDERD
--- NOTE | 2022-02-06 03:41 | PC.NURSE ---
[place] [facility] [place] [phone] - MTS is pending at this time.
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
== END 2022-02-05 20:35 ==
PROVIDERS: Emergency Provider Family Medicine; PCP Nurse Practitioner Family
DX: I46.9 Cardiac arrest, cause unspecified (principal); I21.9 Acute myocardial infarction, unspecified; I11.0 Hypertensive heart disease with heart failure; I50.9 Heart failure, unspecified; E78.5 Hyperlipidemia, unspecified; E11.9 Type 2 diabetes mellitus without complications; Z79.84 Long term (current) use of oral hypoglycemic drugs; F17.210 Nicotine dependence, cigarettes, uncomplicated; V89.2XXA Person injured in unspecified motor-vehicle accident, traffic, initial encounter
CPT/HCPCS: 36416; 51702; 71045; 80051; 80053; 82330; 82550; 82805; 82962; 83605; 84484; 85007; 85025; 85610; 85611; 85730; 93005; 94002; 94799; 99291; 99292